=== PATIENT | male | born 1990 | race Caucasian/White ===

== ENCOUNTER → 2016-03-13 | Outpatient (REF) ==
[~2016-03-13] MED LIST: FLEXERIL 1010 MG/TAB PO; NORCO 325 MG-51 TAB PO; PERCOCET 325 MG1 TA2 PO; PROVENTIL0.09 MG/A1 IH; TYLENOL W/COD1 UDTAB PO
== END ==
LOC: WSOH 12:11
DX: Z02.89 Encounter for other administrative examinations (principal)

== ENCOUNTER 2016-07-06 17:26 | Emergency (ER) | payer OTHER, BC ==
[~2016-07-06] VITALS: Ht 195.6 cm; Wt 101.4 kg
[~2016-07-06 17:26] MED LIST changes: -NORCO 325 MG-51 TAB PO
[2016-07-06 17:29] VITALS: TEMP 98.3
[2016-07-06] MEDS ORDERED: NORCO 325 MG-51 TAB PO (18:53)
[2016-07-06 19:31] VITALS: BP 140/86; PULSE 63
== END 2016-07-06 19:30 | disposition home or self-care (01) ==
LOC: COL.ER 17:26
DX: S70.01XA Contusion of right hip, initial encounter (principal); S83.91XA Sprain of unspecified site of right knee, initial encounter; W23.0XXA Caught, crushed, jammed, or pinched between moving objects, initial encounter; Y92.89 Other specified places as the place of occurrence of the external cause
CPT/HCPCS: J2270; L1830

== ENCOUNTER → 2016-08-01 | Outpatient (CLI) | payer BC ==
[~2016-08-01] MED LIST changes: +NORCO 325 MG-51 TAB PO
[2016-08-01 14:27] LABS: BASO % 0.3 % (0.0-2.0); EOS % 0.2 % (0-4.0); GRAN # 8.6 (1.4-6.5); GRAN % 83.8 % (42.2-75.2); HEMATOCRIT 45.3 % (42.0-52.0); HEMOGLOBIN 15.9 g/dl (13.5-18.0); LYMPH # 0.9 (1.2-3.4); LYMPH % 8.5 % (20.0-51.0); MEAN CELL VOLUME 91 fl (80.0-100.0); MEAN CORPUSCULAR HEMOGLOBIN 32 pg (27.0-31.0); MEAN CORPUSCULAR HGB CONC 35 g/dl (33.0-37.0); MONO # 0.7 (0.1-0.6); MONO % 6.9 % (1.7-9.3); PLATELET COUNT 162 K/mm3 (130-400); RED BLOOD COUNT 4.96 M/mm3 (4.20-5.60); REDCELL DISTRIBUTION WIDTH-CV 12.1 % (11.5-14.5); WHITE BLOOD COUNT 10.2 K/mm3 (4.8-10.8)
[2016-08-01 14:33] LABS: ADJUSTED CALCIUM 8.8 mg/dL (8.4-10.2); ALBUMIN 4.8 gm/dL (3.5-5.0); BILIRUBIN,TOTAL 1.5 mg/dL (0.0-1.0); CALCIUM 9.4 mg/dL (8.4-10.2); CREATININE, serum 1.1 mg/dL (0.66-1.25); POTASSIUM 4.1 mmol/L (3.4-5.0); TOTAL PROTEIN 7.8 gm/dL (6.4-8.2)
== END ==
LOC: COL.LAB 13:52
PROVIDERS: Nurse Practitioner Family
DX: R10.10 Upper abdominal pain, unspecified (principal)

== ENCOUNTER 2017-01-12 14:25 | Emergency (ER) | payer BC ==
[~2017-01-12] VITALS: Ht 195.6 cm; Wt 117.3 kg
[2017-01-12 14:27] VITALS: TEMP 97.9
[2017-01-12] MEDS ORDERED: ROXICODONE 55 MG/TAB PO (16:15)
[2017-01-12] MEDS ORDERED: CRUTCHES MC (16:15)
[2017-01-12 16:32] VITALS: BP 114/65; PULSE 67
== END 2017-01-12 16:34 | disposition home or self-care (01) ==
LOC: COL.ER 14:25
DX: S99.912A Unspecified injury of left ankle, initial encounter (principal); Z98.890 Other specified postprocedural states; X50.0XXA Overexertion from strenuous movement or load, initial encounter; Y93.01 Activity, walking, marching and hiking
CPT/HCPCS: J2405; J3010